=== PATIENT | female | born 1975 | race Caucasian/White ===

== ENCOUNTER 2023-11-09 08:31 | Day surgery (SDC) | payer BC ==
[2023-11-09] MEDS ORDERED: Pepcid 20 MG PO ONE (09:10)
[2023-11-09] MEDS ORDERED: TYLENOL EXTRA STRENGTH 500 MG ONE (09:23)
[2023-11-09] MEDS ORDERED: Reglan 10 MG/2 ML ONE (09:23)
[2023-11-09] MEDS ORDERED: Transderm Scop 1.5MG Patch ONE (09:23)
[2023-11-09] MEDS ORDERED: CLINDAMYCIN-D5W 900 MG/50 ML*** 900 MG/50 ML BAG IV ONE (09:23)
[2023-11-09] MEDS ORDERED: Pepcid 20 MG VIAL IV ONE (09:23)
[2023-11-09] MEDS ORDERED: NEURONTIN ONE (09:24)
[2023-11-09] MEDS ORDERED: celeBREX 100 MG ONE (09:24)
[2023-11-09] MEDS ORDERED: Decadron 4 MG ONE (09:24)
[2023-11-09] MEDS ORDERED: Levofloxacin 500MG/100ML D5W 500 MG/100 ML BAG IV ONE (09:24)
[2023-11-09] MEDS ORDERED: Lactated Ringers 1,000 ML IV ONE (09:24)
[2023-11-09 09:27] VITALS: TEMP 98.5
[2023-11-09] MEDS: celeBREX 100 MG PO ONE (09:35)
[2023-11-09] MEDS: NEURONTIN PO ONE (09:35)
[2023-11-09] MEDS: TYLENOL EXTRA STRENGTH 500 MG PO ONE (09:36)
[2023-11-09] MEDS: Lactated Ringers 1,000 ML IV SCH (09:36)
[2023-11-09] MEDS: Decadron 4 MG PO ONE (09:36)
[2023-11-09] MEDS: Transderm Scop 1.5MG Patch TOP PRN (09:36)
[2023-11-09] MEDS: Reglan 10 MG/2 ML IV ONE (09:37)
[2023-11-09] MEDS: CLINDAMYCIN-D5W 900 MG/50 ML*** 900 MG/50 ML BAG IV SCH (09:42)
[2023-11-09] MEDS: Levofloxacin 500MG/100ML D5W 500 MG/100 ML BAG IV SCH (09:43)
[2023-11-09] MEDS: Pepcid 20 MG VIAL IV ONE (09:45)
[2023-11-09] MEDS ORDERED: Sensorcaine 0.25% 10 ML ONE ×2 (10:42→11:15)
[2023-11-09] MEDS ORDERED: DIPRIVAN 200 MG/20 ML IV ONE (10:43)
[2023-11-09] MEDS ORDERED: ROCURONIUM BROMIDE IV ONE (10:43)
[2023-11-09] MEDS ORDERED: SUBLIMAZE 100 MCG/2 ML ONE (10:44)
[2023-11-09] MEDS ORDERED: Versed 2 MG/2 ML Injection ONE (10:47)
[2023-11-09] MEDS ORDERED: Pre-Attached Lta Kit TP ONE (10:48)
[2023-11-09] MEDS ORDERED: BRIDION 200MG/2ML IV ONE (10:57)
[2023-11-09] MEDS ORDERED: TORAdol 30 mg Injection ONE (10:57)
[2023-11-09] MEDS ORDERED: Zofran 4 MG/2 ML VIAL ONE ×2 (12:12→12:58)
[2023-11-09] MEDS ORDERED: Hydromorphone 1 mg/ml Injection ONE (12:58)
--- NOTE | 2023-11-09 13:39 | OP ---
SURGERY DATE: 11/09/2023 SURGERY TIME: 1124 PREOPERATIVE DIAGNOSIS: 1. CHRONIC CHOLECYSTITIS. POSTOPERATIVE DIAGNOSIS: 1. CHRONIC CHOLECYSTITIS. PROCEDURE: 1. Laparoscopic cholecystectomy. SURGEON: Rg Willett M.D. ANESTHESIA: General. ESTIMATED BLOOD LOSS: Minimal. CONDITION: Stable. COMPLICATIONS: None. SPECIMENS: 1. Gallbladder. HISTORY OF PRESENT ILLNESS: Patient is a 48 year-old female who presents with right upper quadrant abdominal pain and imaging showing gallstones. She did have some just very minimal elevation of her LFT's, not concerning for any ductal obstruction. Common duct normal. Discussion was had with patient. Risks of infection; bleeding; injury to nearby structure; hernia; failure to resolve symptoms. We are not planning on a liver biopsy unless it is grossly abnormal. The patient elected to proceed with that. FINDINGS: Omental adhesions to the gallbladder. Critical view obtained. No obvious abnormality of the liver consistent with hepatic steatosis. DESCRIPTION OF PROCEDURE: The patient was brought to the OR. General anesthesia was induced. Routinely positioned, prepped, and draped. Time-out performed. Received a preoperative antibiotic. 5 mm Optiview trocar was placed in the left upper quadrant. The abdomen is surveyed. 11 mm right paramedian trocar placed. Two additional 5 mm trocars were placed in the right upper quadrant. The abdomen is surveyed. The gallbladder retracted. There are omental adhesions. The gallbladder required to be taken down. Those were all taken down and then the cystic duct/cystic artery dissected out. The critical view was clearly obtained. The duct and artery take 3 down with 5 mm metal clip bow maker production and both divided. The gallbladder was taken off the liver bed. Placed in a specimen bag. Removed through the 11 trocar site. The right upper quadrant reinspected. Clips are in good position. There is good hemostasis. The 11 trocar site closed with 0 Vicryl interrupted suture passer. Right upper quadrant ports removed under direct visualization. Left upper quadrant port used to reduce sufflation and removed. Marcaine had been injected on all the port sites. Skin closed with 4-0 Vicryl sutures. Steri-strips and sterile dressings applied. All counts were correct. The patient tolerated the procedure well. Was extubated and taken to recovery in stable condition.
[2023-11-09 14:07] VITALS: BP 108/72; PULSE 73; RESP 16; O2SAT 98
== END 2023-11-09 14:15 | disposition home or self-care (01) ==
LOC: SDC 08:31
PROVIDERS: ATTEND Surgery
DX: K81.1 Chronic cholecystitis (principal); E11.9 Type 2 diabetes mellitus without complications
CPT/HCPCS: 82947; J1170; J1885; J1956; J2250; J2405; J2704; J3010; A9270-GY